=== PATIENT | male | born 1975 | race African-American/Black ===

== ENCOUNTER 2019-05-23 00:16 | Emergency (ER) | payer SELFPAY ==
[~2019-05-23] VITALS: Ht 177.8 cm; Wt 82.0 kg
[2019-05-23 04:50] VITALS: BP 138/89
== END 2019-05-23 04:51 | disposition home or self-care (01) ==
LOC: EDBD 00:16 → ER 00:44
DX: F22 Delusional disorders (principal); A05.9 Bacterial foodborne intoxication, unspecified
CPT/HCPCS: 99283

== ENCOUNTER 2019-07-14 14:35 | Emergency (ER) | payer BC, MEDICAID ==
[~2019-07-14] VITALS: Ht 177.8 cm; Wt 84.0 kg
[2019-07-14] MEDS ORDERED: IBUPROFEN 600MG TABLET PO ONE (19:45)
[2019-07-14 20:07] VITALS: BP 145/74
== END 2019-07-14 20:09 | disposition home or self-care (01) ==
LOC: ER 14:35
DX: S92.061A Displaced intraarticular fracture of right calcaneus, initial encounter for closed fracture (principal); X58.XXXA Exposure to other specified factors, initial encounter; Y93.39 Activity, other involving climbing, rappelling and jumping off; Y92.89 Other specified places as the place of occurrence of the external cause; Y99.8 Other external cause status
CPT/HCPCS: 29515; 73610; 99283; Z7610

== ENCOUNTER 2020-06-14 18:01 | Emergency (ER) | payer BC, MEDICAID ==
[~2020-06-14] VITALS: Ht 175.3 cm; Wt 86.0 kg
[2020-06-14 21:15] LABS: HEMATOCRIT. 42.4 % (42.0-52.0); MEAN CORPUSCULAR HEMOGLOBIN 29.4 pg (28.0-32.0); MEAN CORPUSCULAR VOLUME 88.9 fL (80.0-94.0); MEAN PLATELET VOLUME 9.6 fl (7.4-10.4); PLATELET 207 x1000/uL (130-400); RED BLOOD CELL COUNT 4.77 mill/uL (4.7-6.1); RED CELL DISTRIBUTION WIDTH 13.8 % (11.6-14.6)
[2020-06-14 21:19] LABS: CHLORIDE 101 mEq/L (98-107)
[2020-06-14 21:37] LABS: PLATELET ESTIMATE NORMAL
[2020-06-15] MEDS ORDERED: KETOROLAC 60MG/2ML VIAL IM ONE (00:30)
[2020-06-15 00:36] LABS: CLARITY URINE CLEAR (CLEAR); COLOR URINE YELLOW (YELLOW); KETONES URINE 2+ (NEGATIVE); LEUKOCYTE ESTERASE URINE NEGATIVE (NEGATIVE); NITRITE URINE NEGATIVE (NEGATIVE); OCCULT BLOOD URINE NEGATIVE (NEGATIVE); PH URINE 5.5 (4.5-8.0); PROTEIN URINE TRACE (NEGATIVE); SPECIFIC GRAVITY URINE 1.018 (1.005-1.030)
[2020-06-15 00:52] LABS: *AMPHETAMINES SCREEN URINE PRESUMTIVE POSITIVE (NEGATIVE)
[2020-06-15 00:53] LABS: *BARBITURATES SCREEN URINE NEGATIVE (NEGATIVE); *BENZODIAZEPINES SCREEN URINE NEGATIVE (NEGATIVE); *COCAINE SCREEN URINE NEGATIVE (NEGATIVE)
[2020-06-15 00:54] LABS: CANNABINOID URINE SCREEN NEGATIVE (NEGATIVE); METHADONE URINE SCREEN NEGATIVE (NEGATIVE); OPIATES URINE SCREEN NEGATIVE (NEGATIVE); PHENCYCLIDINE URINE SCREEN NEGATIVE (NEGATIVE)
[2020-06-15 01:15] VITALS: BP 122/85
[2020-06-15] MEDS ORDERED: ACETAMINOPHEN 325MG TABLET PO ONE (01:15)
== END 2020-06-15 01:16 | disposition home or self-care (01) ==
LOC: ER 18:01
DX: R07.89 Other chest pain (principal); F41.9 Anxiety disorder, unspecified; R10.12 Left upper quadrant pain; N30.90 Cystitis, unspecified without hematuria
CPT/HCPCS: 36415; 71045; 74176; 80053; 80305; 81003; 83880; 84484; 85025; 93005; 99285; J1885